=== PATIENT | male | born 1970 | race Caucasian/White ===

== ENCOUNTER → 2017-12-20 | Outpatient (CLI) | payer BC ==
[~2017-12-20] VITALS: Ht 167.6 cm; Wt 90.2 kg
[~2017-12-20] MED LIST: LRT5 PO
[2017-12-20 15:34] VITALS: BP 146/89; PULSE 83; Ht 167.6 cm; Wt 90.2 kg
== END | disposition home or self-care (01) ==
LOC: C.NEUR 15:06
PROVIDERS: ATTEND Internal Medicine Pulmonary Disease
DX: G47.00 Insomnia, unspecified (principal); G47.61 Periodic limb movement disorder; R53.83 Other fatigue; R06.83 Snoring; J34.2 Deviated nasal septum

== ENCOUNTER → 2018-01-02 | Outpatient (CLI) | payer OTHER ==
--- NOTE | 2018-01-03 06:01 | PAP/PSG TECHNICIAN REPORT ---
[facility] Capital Equipment Specialist Polysomnogram Report Study name: None Report date: 01/03/2018 Study date: 01/02/2018 Referring Physician: Jovanni Lindquist M.D. Name: ABRAHAM RAMÍREZ Interpreting Physician: Jovanni Lindquist M.D. Date of : 1970 Capital Equipment Specialist: Kirsten Peñaloza RPSGAVI. Sex: Male Age: 47 StudyType: PSG Weight: 198 lbs Height: 47 years, Height 5' 6" Neck Circum: 17 inches BMI: 31.95 Medications: Lorazepam 1 mg, Naproxen Sodium 550 mg, Omeprazole 20 mg, Tamsulosin 0 4 mg, Benadryl 75 mg, Tylenol PM Patient History 47 yr. old male here for a diagnostic sleep study in room #5. Patient complains of maintenance insomnia. Patient also complains of snoring and restlessness. ESS 01/04. Parameters Monitored NPSG: E1-M2, E2-M1, Fp1-M2, Fp2-M1, F3-M2, F4-M2, F4-M1, C3-M2, C4-M2, C4-M1, O1-M2, O2-M2, O2-M1, T3-M2, T4-M1, P3-M2, P4-M1, CHIN1, CHIN2, HR, EKG, Legs, PFLOW, SNOR, FLOW, CFLOW, Tidal Volume, THOR, ABDO, SpO2, PLTH, CPRESS, ETCO2 Wave, ETCO2, pH Sleep Architecture Sleep Stages Time at Lights Off 9:51:47 PM STAGES Time (min.) TST (%) Time at Lights On 5:41:17 AM Wake 111.5 -- Total Recording Time (TRT) 470.00 min. N1 44.0 12 Total Sleep Period (TSP) 410.0 min. N2 190.5 53 Total Sleep Time (TST) 358.0min. N3 31.0 9 Awake Time 111.5 min. REM 92.5 26 Wake after Sleep Onset 52.0 min. Sleep Efficiency (SE) 76 % Sleep Onset Latency (GUNNER) 59.5 min. Number of Stage 1 Shifts None Awakenings 23 Stage Changes 89 Number of REM periods 8 REM 92.5 26 REM Latency 50.5 min. NREM 265.5 74 Body Position Analysis Supine Right Left Side Prone Vertical Total Sleep Time (min.) 84.5 105.4 226.8 332.16 0.0 0.0 Total Sleep Time (%) 7% 29% 63% 93 0% N/A% Total Sleep Time REM (min.) 4.0 33.0 55.5 None 0.0 0.0 Total Sleep Time NREM (min.) 21.8 72.4 171.3 None 0.0 0.0 Intermittent Wake (min.) 58.6 16.7 36.2 None 0.0 0.0 Total Sleep Period (%) 7% None None None None None Arousals Myoclonus (PLM) * Events Count Index Events Count Index Spontaneous 10 2 Events Awake (PLMW) 40 21.5 Respiratory 3 0.5 Events Asleep w/ Arousal (PLMA) 4 0.7 PLM 4 1 Events Asleep w/o Arousal (PLMS) 26 4.4 Snoring 8 1 Total Asleep 30 5.0 Total 25 4 Total 70 9 Respiratory Analysis * CA OA MA CH H RERA Total Count 0 0 0 0 41 0 41 Index 0.0 0.0 0.0 0 6.9 0 6.9 Mean Duration 0.0 0.0 0.0 0.00 28.5 0.0 28.5 Longest Duration 0.0 0.0 0.0 0.00 0.0 0.0 51.2 Respiratory Event Summary Total Supine ~Supine Right Left Prone REM NREM Apneas Count 0 0 0 0 0 N/A 0 0 Index 0.0 0 0 0.0 0.0 N/A 0 0 Hypopneas (4% Desat) Count 41 21 20 7 13 N/A 12 29 Index 6.9 48.8 4 4.0 3.4 N/A 7.8 6.6 Apneas & All Hypopneas Count 41 21 20 7 13 N/A 12 29 Index 6.9 49 4 4 3 N/A 7.8 6.6 Respiratory Events (Nylon Winder+All Hyp+RERA) Count 41 21 20 7 13 N/A 12 29 Index 6.9 49 4 4.0 3.4 N/A 7.8 6.6 Respiratory Related Arousal Count 3 21 0 0 0 N/A 0 3 Index 0.5 7 0 0 0 N/A 0 1 Snoring Analysis Supine Right Left Prone REM NREM Total Snore duration 24.7 min Snores count 49 83 834 N/A 142 824 966 Snore mean duration 1.5 Sec Snores index 114 47 221 N/A 92.1 186.2 161.9 TST with snoring (%) 6.9% Desaturation Event Summary: Minimum %SpO2 Event Count Mean/Min/Max Duration(sec.) Desaturation Index % Time In Bed > 90 64 34.5 / 7.3 / 59.5 8.4 99.2 86 - 90 0 N/A 0.0 0.7 81 - 85 1 4.3 / 4.3 / 4.3 232.3 0.1 76 - 80 0 N/A 0.0 0.0 71 - 75 0 N/A 0.0 0.0 66 - 70 0 N/A 0.0 0.0 61 - 65 0 N/A 0.0 0.0 56 - 60 0 N/A 0.0 0.0 51 - 55 0 N/A 0.0 0.0 < 50 0 N/A 0.0 0.0 Total REM NREM Awake <50% 0.0 min. 0.0 min. 0.0 min. 0.0 min. 51 - 60% 0.0 min. 0.0 min. 0.0 min. 0.0 min. 61 - 70% 0.0 min. 0.0 min. 0.0 min. 0.0 min. 71 - 80% 0.0 min. 0.0 min. 0.0 min. 0.0 min. 81 - 90% 3.6 min. 0.7 min. 2.1 min. 0.8 min. 91 - 100% 459.7 min. 91.8 min. 263.0 min. 104.9 min. Average 94 95 94 94 Minimum SpO2 81 90 87 81 Desaturation Event Index 8.3 8.4 7.7 11.3 # Desat. Events below 89% 2 N/A 1 1 Time(%) with Saturation below 89% 0.1 0.0 0.0 0.1 Time(min.) with Saturation below 89% 0.4 0.0 0.1 0.3 Time (mins) REM (mins) NREM (mins) % of TST SpO2 Below 90% 9 N/A N9 0.2 SpO2 Below 88% 1 0 0 0 Heart Rate Analysis Min (bpm) Max (bpm) Average (bpm) Awake 30 127 70 NREM 47 96 64 REM 46 87 65 Overall 46 96 64 Supplemental O2 Values Minimum O2 level: None Value Start Time End Time Capital Equipment Specialist Comments Mr. Ramírez slept in the right, left, and supine positions. No cardiac arrhythmia. PLMs noted. No bruxism noted. Snoring was noted and scored as a 4 on a scale of 0 through 5. (0=no snoring, 5=snoring loud enough to be heard through a closed door or down the gayle way) Mr. Ramírez awoke to use the restroom once during the night. Mr. Ramírez stated, that was a normal night. The final report will be interpreted and signed by a sleep physician. The completed physician report will then be placed in the patient medical record. Therapy (cm H2O) 0 TIB (min.) 469.5 TST (min.) 358.0 Sleep Onset (min.) 59.5 REM Onset From Sleep (min.) 50.5 Sleep Efficiency % 76 Wakefulness (%) 24 Wakefulness (min.) 111.5 NREM 1 (%) 12 NREM 1 (min.) 44.0 NREM 2 (%) 53 NREM 2 (min.) 190.5 NREM 3 (%) 9 NREM 3 (min.) 31.0 REM (%) 26 REM (min.) 92.5 # Arousals 25 Arousal Index 4 # Snore 966 Snore Index 161.9 AHI 6.9 AHI Supine 49 AHI Non-Supine 4 NREM AHI 6.6 REM AHI 7.8 RDI 6.9 # Obstructive Apnea 0 # Central Apnea 0 # Mixed Apnea 0 # Hypopneas 41 RERAs 0 Total Respiratory Events 41 Time Below SpO2 89% (min.) 0.1 Mean NREM SpO2 (%) 94 Mean REM SpO2 (%) 95 Mean Sleep SpO2 (%) 94 Min NREM SpO2 (%) 87 Min REM SpO2 (%) 90 Position Supine (min.) 84.5 Position Non-supine (min.) 332.2 LM Index Sleep 5.0 LM Index NREM 2.5 LM Index REM 12.3 Mean Heart Rate (bpm) 64 Min Heart Rate (bpm) 46
--- NOTE | 2018-01-03 15:01 | POLYSOMNOGRAPH REPORT ---
CLINICAL DATA: A 47-year-old male with BMI of 32, referred by myself and Dr. Astorga with insomnia, restless legs and snoring at night. SLEEP ARCHITECTURE: Total sleep period was 410 minutes. Total sleep time was 358 minutes divided between 265.5 minutes of non-REM sleep and 92.5 minutes of REM sleep. Sleep onset latency was 59.5 minutes. REM latency was 50.5 minutes. Sleep efficiency was 76%. Wake after sleep onset was 52 minutes. Sleep consisted of stage N1 12%, stage N2 53%, stage N3 9% and REM 26%. AROUSAL DATA: Twenty four arousals were recorded for an index of 4 per hour. Ten were spontaneous. PERIODIC LIMB MOVEMENT DATA: Thirty limb movements during sleep were noted for an index of 5 per hour with arousal index of 0.7 per hour. RESPIRATORY DATA: Very mild sleep apnea was documented. The AHI was 6.9. There were 41 hypopneic episodes with a mean duration of 28.5 seconds. OXIMETRY DATA: Transient hypoxemia was seen. Oxygen regan was 87%. Mean saturation was 94%. Time below 88% was 1 minute. ECHOCARDIOGRAM: Heart rates ranged from 47-96 beats per minute. No arrhythmias were noted. CYTOPATHOLOGY TECHNOLOGIST'S COMMENTS: The patient slept in the right, left, and supine positions. Snoring was severe rated 4 on a scale of 1-5. IMPRESSION: 1. Mild sleep apnea/hypopnea with an apnea/hypopnea index of 6.9. 2. Delayed sleep onset consistent with insomnia. 3. No evidence of periodic limb movement disorder. RECOMMENDATIONS: The patient may benefit from weight loss, use of an oral appliance, or use of CPAP. Clinical correlation is needed. [facility]ITAL[facility]
--- NOTE | 2018-01-06 08:53 | POLYSOMNOGRAPH REPORT ---
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 Allen for evaluation of snoring and possible sleep apnea. The patient does have some issues with his weight and is trying to diet. He has been having some loud snoring, which has been bothering his . He does awake once per night to go to the bathroom. He has not had apneic episodes that he is aware of and his has not recorded apneic episodes. He goes to bed between 10:00 p.m. and 11:00 p.m. He falls asleep within minutes. He wakes up between 6:00 a.m. and 7:00 a.m. He usually feels rested at that time. He has no symptoms of PLMD or RLS. He has no symptoms of narcolepsy or parasomnia. He sleeps in bed on 1-2 pillows. SOCIAL HISTORY: He does not drink excessive amounts of caffeine. FAMILY HISTORY: There is a family history of loud snoring. There is a family history of cardiovascular disease. His father had a coronary artery bypass graft done several years ago. MEDICATIONS: He does not take any regular medications. REVIEW OF SYSTEMS: Rest of his review of systems is as noted in the questionnaire which is reviewed by me and scanned into the medical record. OBJECTIVE: VITAL SIGNS: As noted above. GENERAL: Alert and oriented x3. Records from his PCP have been reviewed. 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 His medical driver would like to have him evaluated for obstructive sleep apnea. He is going to be moving from this area on January 09. PLAN: The patient will be scheduled for an in-lab study. I will contact him with results of his sleep study prior to his leaving this area.
== END | disposition home or self-care (01) ==
LOC: C.NEUR 20:00
PROVIDERS: ATTEND Internal Medicine Pulmonary Disease
DX: G47.30 Sleep apnea, unspecified (principal); G47.21 Circadian rhythm sleep disorder, delayed sleep phase type

== ENCOUNTER → 2018-01-07 | Outpatient (CLI) | payer OTHER ==
[~2018-01-07] VITALS: Ht 167.6 cm; Wt 89.9 kg
[2018-01-07 13:58] VITALS: BP 157/91; PULSE 71; Ht 167.6 cm; Wt 89.9 kg
== END | disposition home or self-care (01) ==
LOC: C.NEUR 12:08
PROVIDERS: ATTEND Internal Medicine Pulmonary Disease
DX: G47.00 Insomnia, unspecified (principal); R53.83 Other fatigue; G47.30 Sleep apnea, unspecified; Z88.5 Allergy status to narcotic agent

== ENCOUNTER → 2018-02-21 | Outpatient (CLI) | payer OTHER ==
[~2018-02-21] VITALS: Ht 167.6 cm; Wt 89.9 kg
[2018-02-21 14:08] VITALS: BP 139/90; PULSE 109; Ht 167.6 cm; Wt 89.9 kg
== END | disposition home or self-care (01) ==
LOC: C.NEUR 13:35
PROVIDERS: ATTEND Internal Medicine Pulmonary Disease
DX: G47.00 Insomnia, unspecified (principal); G47.30 Sleep apnea, unspecified; R53.83 Other fatigue

== ENCOUNTER 2020-01-25 08:35 | Inpatient (IN) ==
--- NOTE | 2019-12-31 13:54 | PAT Medication Instructions ---
Medication Instructions Date of Service December 31, 2019 Home Medications doxepin 10 mg capsule 20 mg PO QPM PRN lorazepam 1 mg tablet 1 mg PO QPM PRN naproxen sodium 550 mg tablet 550 mg PO HS omeprazole 20 mg tablet,delayed release 20 mg PO HS multivitamin,[id number]-qvra-[id number] 1 tab PO QAM DO NOT take the morning of surgery multivitamin,nh-brxy-vedcrrkz 1 tab PO QAM Take evening before surgery doxepin 10 mg capsule 20 mg PO QPM PRN (if needed) lorazepam 1 mg tablet 1 mg PO QPM PRN (if needed) naproxen sodium 550 mg tablet 550 mg PO HS omeprazole 20 mg tablet,delayed release 20 mg PO HS NOTHING TO EAT OR DRINK AFTER MIDNIGHT Other Notes If you have any questions please call us at [phone] or [phone] or [phone] or [phone]
--- NOTE | 2020-01-01 08:27 | Anesthesiology Consultation ---
Date of Service January 01, 2020 Assessment & Plan (1) Encounter for pre-operative examination: Chart Review Chart Review: Acceptable Risk for Surgery and Patient seen in Pre Admission Testing Teaching & Discussion Instructed NPO after midnight before surgery, except medications with 15 cc of water. Medication instructions provided according to the PAT guidelines. History Surgery Operation Date: 01/25/20 09:20 Proposed Procedures p Right Total Shoulder Arthroplasty - Justin Joaquin, Height/Weight Height: 5 ft 6 in Weight: 82.2 kg Allergies Allergy/AdvReac Type Severity Reaction Status Date / Time morphine Allergy Mild HIVES Verified 12/25/19 11:39 Medications Home Medications Medication Instructions Recorded Confirmed Last Taken doxepin 10 mg capsule 20 mg PO QPM PRN cap 08/22/19 12/25/19 Unknown lorazepam 1 mg tablet 1 mg PO QPM PRN tab 08/22/19 12/25/19 Unknown naproxen sodium 550 mg tablet 550 mg PO HS 08/22/19 12/25/19 Unknown omeprazole 20 mg tablet,delayed 20 mg PO HS 08/22/19 12/25/19 Unknown release multivitamin,yq-bdxe-eauzkucz 1 tab PO QAM 12/14/19 12/25/19 Unknown Past Medical History Medical History (Updated 01/01/20 @ 08:28 by Yovanny Trujillo) GERD (gastroesophageal reflux disease) Nephrolithiasis X MULTIPLE-NO SURGERY Subarachnoid hemorrhage HX 2007, SPONTANEOUS, S/P COIL AT [facility] [place] Exercise / Class Metabolic Activity 1 > 8 Run/Swim/Ski/Tennis Past Family History Family History (Updated 12/25/19 @ 11:46 by Lisa Kim RN) Grandfather (Maternal) Family hx of colon cancer Past Surgical History Surgical History (Updated 01/01/20 @ 08:20 by Yovanny Trujillo) History of colonoscopy History of esophagogastroduodenoscopy (EGD) History of herniorrhaphy History of laminectomy AND FUSION, L5-S1 History of tooth extraction WISDOM TEETH Subarachnoid hemorrhage 2007-RANDOM BLEED-COIL PLACED AT [facility] [place]-NO MORE F/U-NO ISSUES SINCE Past Anesthesia History No Hx of Anesthesia Complications and No Family Hx of Anesthesia Complications History of PONV No Hx of PONV and No Hx of Motion Sickness Social History Smoking Status: Never smoker Do You Dip or Chew Tobacco: No Hx Alcohol Use: Yes Alcohol type: beer alcohol intake frequency: a few times a week Hx Substance Use: No Review of Systems Pt denies any recent chest pain, shortness of breath, palpitations, cough, fever or URI. Physical Exam Vital Signs BP: 125/82 P: 77bpm SPO2: 99% RA T: 97.7 F R: 16 ENMT Mouth: + dental restorations (2 crowns) Thyromental Distance: < 3.5 Finger Breadths (3) Mallampati Class: I Neck normal visual inspection; neck extension not limited Respiratory normal respiratory effort Auscultation: lungs clear to auscultation bilaterally Cardiovascular Rate/Rhythm: regular rate and regular rhythm Heart Sounds: no murmur Testing Laboratory Results 01/01/20 08:18 01/01/20 08:18 PT 9.8 Seconds (9.0-12.0) 01/01/20 08:18 INR 1.0 (0.9-1.1) 01/01/20 08:18 APTT 23.4 Seconds (21.0-31.0) 01/01/20 08:18 Blood Type O Positive 01/01/20 08:18 Antibody Screen NEGATIVE 01/01/20 08:18 Electrocardiogram Date: 01/01/20 Findings: + NSR @ (77bpm) No change from 2006 EKG. Chest X-Ray Date: 01/01/20 Findings: + NAD
--- NOTE | 2020-01-01 08:45 | XRay Report ---
XR chest Pre-admission PA/Lat CLINICAL HISTORY: 49 years-old Male presenting with preoperative assessment. TECHNIQUE: PA and lateral views of the chest were obtained. COMPARISON: None. FINDINGS: Cardiomediastinal silhouette normal. Lungs and pleural spaces clear. Osseous structures normal. Upper abdomen normal. IMPRESSION: 1. No acute cardiopulmonary disease. ACT 112: Negative or not required by law. Electronically signed by: Yehuda Faye M.D. 01/01/2020 8:44 AM
[2020-01-01 10:16] LABS: Basophils # (auto) 0.01 K/uL (0-0.2); Basophils % (auto) 0.2 %; Eosinophils # (auto) 0.23 K/uL (0-0.5); Eosinophils % (auto) 4.4 %; Hematocrit (blood only) 46.5 % (42-52); Immature Granulocytes # (auto) 0.01 K/uL (0.00-0.02); Immature Granulocytes % (auto) 0.2 %; Lymphocytes # (auto) 1.38 K/uL (1.2-3.4); Lymphocytes % (auto) 26.7 %; Mean Corpuscular Hemoglobin 33.6 pg (25-34); Mean Corpuscular Hgb Conc 34.4 g/dL (32-36); Mean Corpuscular Volume 97.7 fL (80-100); Mean Platelet Volume 12.3 fL (7.4-10.4); Monocytes # (auto) 0.34 K/uL (0.11-0.59); Monocytes % (auto) 6.6 %; Neutrophils % (auto) 61.9 %; Platelet Count 229 K/uL (130-400); RDW Coefficient of Variation 13.1 % (11.5-14.5); RDW Standard Deviation 46.6 fL (36.4-46.3); Red Blood Count 4.76 M/uL (4.7-6.1); White Blood Count 5.17 K/uL (4.8-10.8)
[2020-01-01 10:28] LABS: Partial Thromboplastin Ratio 0.9; Partial Thromboplastin Time 23.4 Seconds (21.0-31.0); Prothrombin Time 9.8 Seconds (9.0-12.0)
[2020-01-01 10:33] LABS: BUN Creatinine Ratio 19.9 (10-20); Calcium 9.3 mg/dl (8.5-10.1); Creatinine Clr Calc Pharmacy 84.7 ml/min; Est GFR (African American) 95.5; Est GFR (Non-African American) 82.4; Potassium 4.3 mmol/L (3.5-5.1)
--- NOTE | 2020-01-01 21:58 | Electrocardiogram Report ---
Test Reason : Blood Pressure : / mmHG Vent. Rate : 077 BPM Atrial Rate : 077 BPM P-R Int : 150 ms QRS Dur : 098 ms QT Int : 394 ms P-R-T Axes : 073 087 055 degrees QTc Int : 445 ms Normal sinus rhythm Normal ECG When compared with ECG of 08-MAY-2007 11:33, No significant change was found Confirmed by Herb Mccabe ([id number]) on 01/01/2020 9:58:05 PM Referred By: Justin Joaquin Confirmed By:Herb Mccabe
--- NOTE | 2020-01-22 13:31 | History & Physical Report ---
Date of Service January 22, 2020 Assessment & Plan (1) Osteoarthritis of right shoulder: We will proceed with a right total shoulder arthroplasty. Postoperatively he will be placed in a sling and kept overnight in the hospital for postoperative medical management. He will do outpatient physical therapy upon discharge. Driss is a low risk for a right shoulder procedure. 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 He has been having a long history of increasing right shoulder pain. Is been getting much worse over the last 9 months. He has trouble chopping firewood. He has trouble sleeping at night. X-rays and clinical examination have been diagnostic for advanced osteoarthritis of the right shoulder. After failing conservative treatment, he has elected to proceed with a right total shoulder arthroplasty. Allergies Allergy/AdvReac Type Severity Reaction Status Date / Time morphine Allergy Mild HIVES Verified 12/25/19 11:39 Home Medications Home Medications Medication Instructions Recorded Confirmed Type doxepin 10 mg capsule 20 mg PO QPM PRN cap 08/22/19 12/25/19 History lorazepam 1 mg tablet 1 mg PO QPM PRN tab 08/22/19 12/25/19 History naproxen sodium 550 mg tablet 550 mg PO HS 08/22/19 12/25/19 History omeprazole 20 mg tablet,delayed 20 mg PO HS 08/22/19 12/25/19 History release multivitamin,dh-qixe-aazaybhb 1 tab PO QAM 12/14/19 12/25/19 History Past Med/Surg History Medical History GERD (gastroesophageal reflux disease) Nephrolithiasis X MULTIPLE-NO SURGERY Subarachnoid hemorrhage HX 2007, SPONTANEOUS, S/P COIL AT [facility] [place] Surgical History History of colonoscopy History of esophagogastroduodenoscopy (EGD) History of herniorrhaphy History of laminectomy AND FUSION, L5-S1 History of tooth extraction WISDOM TEETH Subarachnoid hemorrhage 2007-RANDOM BLEED-COIL PLACED AT [facility] [place]-NO MORE F/U-NO ISSUES SINCE Family History Grandfather (Maternal) Family hx of colon cancer Social History Preferred Language: Kiswahili Communication Ability: Effective Shirt Hemmer Required: No Beliefs That Will Affect Care: None marital status: Current Living Situation: Spouse and Family current occupational status: employed Other Information That Helps Us Care for You: No Feels Safe at Home: Yes Safety Concerns: Feels Safe At This Time Smoking Status: Never smoker Do You Dip or Chew Tobacco: No ; Second Hand Exposure: Yes (MOTHER SMOKED) ; Hx Alcohol Use: Yes Alcohol type: beer Hx Substance Use: No Review of Systems Review of Systems: All systems reviewed & are unremarkable except as noted in HPI & below Physical Exam Constitutional: WD/WN, vitals as above Eyes: PERRL, conjunctivae normal, anicteric sclerae ENMT: external ear and nose normal, oropharynx normal Neck: trachea midline, no thyromegaly Respiratory: normal respiratory effort Cardiovascular: RRR, no murmur, no edema Gastrointestinal (Abdomen): normal bowel sounds, soft, nontender, no hepatosplenomegaly Musculoskeletal: Physical examination of the right shoulder reveals decreased range of motion and crepitis throughout. There is good strength with full can testing and external rotation. There is tenderness palpation along the anterior glenohumeral joint line. The right upper extremity is neurovascularly intact. Psychiatric: A+Ox3, euthymic affect Results & Data Diagnostic Findings Radiographs of the right shoulder show osteoarthritis of the glenohumeral joint. There is joint space narrowing, osteophyte formation, and [id number] articulation. PG Care Time/CCT Total # of Minutes Spent Total Time Spent with Patient: Total time spent is greater than 50% in coordination of care (as documented) at patient's floor/unit and/or counseling patient: Coding Level of Care Code 14700 Initial Inpt Care Lvl 2 Diagnoses Osteoarthritis of right shoulder M19.011
[~2020-01-25 08:35] MED LIST changes: +ACETAMINOPHEN 500 MG TAB PO SCH; +BUPIVACAINE 0.5 % 5 MG/1 ML PF 10ML VIAL ONE; +CEFAZOLIN 2000MG 2,000 MG/15 ML SYR IV SCH; +FAMOTIDINE 20 MG TAB PO SCH; +GABAPENTIN 900 MG DOSE PO SCH; +LR 15ML/HR IV SCH; +LR 60ML/HR IV SCH; -LRT5 PO; +TRANEXAMIC ACID 1,000 MG **IV Intra-op IV SCH; +TRANEXAMIC ACID 1,000 MG **IV Pre-op IV SCH; +dexAMETHasone 4 MG TAB PO SCH
[2020-01-25] MEDS ORDERED: ATROPINE SULFATE 0.1 MG/ML 10ML SYR IV PRN (10:34)
[2020-01-25] MEDS ORDERED: ePHEDrine sulfate 50 MG/ML AMP IV PRN (10:34)
[2020-01-25] MEDS ORDERED: fentaNYL citrate 100 MCG/2 ML VIAL IV PRN (10:34)
[2020-01-25] MEDS ORDERED: ONDANSETRON INJ 2 MG/ML 2 ML VIAL IV PRN ×2 (10:34→14:35)
--- NOTE | 2020-01-25 10:38 | History & Physical Bridge Note ---
Date of Service January 25, 2020 History & Physical Bridge Note I have examined the patient, reviewed the History & Physical and in the interval since the performance of the History & Physical I have noted the following changes of clinical significance: no changes noted
[2020-01-25] MEDS ORDERED: ORTHO JOINT ANESTHETIC ONE (11:02)
[2020-01-25] MEDS ORDERED: MIDAZOLAM HCL 1 MG/ML 2ML VIAL ONE ×2 (11:23→11:58)
[2020-01-25] MEDS ORDERED: PROPOFOL IV EMULSION 10 MG/ML 20 ML VIAL IV ONE (11:55)
[2020-01-25] MEDS ORDERED: ONDANSETRON INJ 2 MG/ML 2 ML VIAL ONE (11:56)
[2020-01-25] MEDS ORDERED: LIDOCAINE HCL 2% 2 ML VIAL/AMP(20MG/ML) INFIL ONE (11:56)
[2020-01-25] MEDS ORDERED: DEXAMETHASONE SOD INJ 4 MG/ML VIAL ONE (11:56)
[2020-01-25] MEDS ORDERED: ROCURONIUM BROMIDE 10 MG/ML 5 ML VIAL ONE (11:56)
[2020-01-25] MEDS ORDERED: fentaNYL citrate 100 MCG/2 ML VIAL ONE ×2 (11:58→12:09)
[2020-01-25] MEDS: ROPIVACAINE 0.5% HCL/PF 150 MG, BUPIVACAINE 0.5% MPF 30 ML, EPINEPHrine 30MG/30ML (OR U... INSTIL SCH ×2 (12:12→12:53)
--- NOTE | 2020-01-25 13:00 | Operative Report ---
PG Post Operative Report Pre & Post Diagnosis Operation Date: 01/25/20 11:10 Pre-Op Diagnosis: Right Shoulder Osteoarthritis with tendinopathy of the long head of the biceps tendon Post-Op Diagnosis: Right Shoulder Osteoarthritis with tendinopathy of the long head of the biceps tendon I identified the patient and participated in the time-out.: Yes Procedure Operation Date: 01/25/20 11:10 Actual Procedures p Right Total Shoulder Arthroplasty with open biceps tenodesis as a separate procedure (modifier 59)--Cemented(Right) - Justin Joaquin DO Surgeon Justin Joaquin DO Perianesthesia Rn Justin Campa PAC Estimated Blood Loss 200 Findings Consistent with Post-Op Diagnosis Specimens Right humeral head Complications none Disposition Disposition: Recovery Room Indications Driss is a pleasant 49-year-old male who presented my office with chronic increasing right shoulder pain. X-rays and clinical examination were diagnostic for advanced osteoarthritis of the right shoulder. After failing conservative treatment, he elected to proceed with a right total shoulder arthroplasty. Description of Procedure A CPT code modifier 59: The long head of the biceps tendon was enlarged and inflamed consistent with tendinopathy. A tenodesis was opted. This was a separate and distinct portion of the procedure. For these reasons, a CPT code modifier 59 will be added to this case. Implants used: I used a Biomet Comprehensive total shoulder arthroplasty system with a size 12 press fit mini humeral stem, a size 50 x 21 eccentric humeral head, and a medium size glenoid with a Regenerex peg. The glenoid was cemented in place with Palacos G cement. Driss arrived at [facility] for the above procedure. He was seen in the preoperative holding area and the operative extremity was identified and signed. He was given a preoperative antibiotic, TXA, and an interscalene nerve block. He was taken back to the operating room, laid on table in supine position, and put under general anesthesia. He was then put into the beachchair position. The shoulder was then prepped and draped in sterile fashion. A timeout was done and the patient and the operative extremity was properly identified. A deltopectoral approach was used. Dissection was taken down through the fascia and the deltoid was retracted laterally and the conjoined tendon was retracted medially. The anterior shoulder was exposed. The biceps groove was opened up and the biceps tendon was examined extensively. The biceps tendon demonstrated enlargement and inflammatory changes consistent with longstanding inflammation in the context of osteoarthritis. The long head of the biceps tendon was then tenodesed to the upper border of the pectoralis major. This was a separate and distinct portion of the procedure. The subscapularis was then released off the lesser tuberosity with a centimeter of cuff tissue remaining. The inferior capsule was released and the humeral head was dislocated. The rotator cuff was inspected and intact. A canal finding reamer was sent down the center of the humeral canal. Sequential reaming up to a size 12 reamer was done. Offset reamer a proximal humeral resection guide was placed. The proximal humerus was resected at 135 of inclination and 30 of retroversion. Inferior osteophytes were then removed and the glenoid was exposed. Time was spent doing an appropriate labral release. The glenoid measured to be a size medium. A 3.2 mm Steinmann pin was placed in the central hole of the glenoid vault pin guide. The glenoid was then reamed with a propeller reamer. The central post cutter was then used to prepare for the central boss. The cannulated peripheral peg drill guide was then placed and 3 peg holes were drilled. The final size medium glenoid was then cemented in place with Palacos G cement. Surrounding soft tissues were then injected with 100 cc of an orthopedic pain control cocktail. Once cement had dried the proximal humerus was once again exposed. Sequential broaching of the humerus up to a size 12 broach was done. Off that broach a size 50 x 21 eccentric humeral head was trialed. The shoulder was then reduced, brought through a full range of motion, and felt to be stable. The shoulder was then dislocated and the broach was removed. The final size 12 mini humeral stem implant was then impacted into place. A size 50 x 21 eccentric humeral head was then impacted onto the humeral stem. The shoulder was then reduced and once again brought through a full range of motion and felt to be stable. The subscapularis was then tenodesed back to the lesser tuberosity with transosseous FiberWire sutures and side to side sutures with the arm in 45 of external rotation. 2 sutures were placed in the lateral rotator interval. A dilute betadyne lavage was then done for 3 minutes. The joint was then irrigated with normal saline solution. Hemostasis was obtained. The interval was closed with 2-0 Vicryl suture. The skin was closed with 2-0 Vicryl and sil. A soft dressing was placed and the arm was rested in a regular arm sling. He was then extubated and transferred to a hospital bed. He was taken to the postanesthesia care unit in stable condition. He tolerated the procedure well. Justin Campa PA-C, was present for the entire procedure. He was critical for patient positioning, prepping, draping, retraction exposure, wound closure and application of sterile dressing. I attest to the content of the Intraoperative Record and any orders documented therein. Any exceptions are noted below.
[2020-01-25] MEDS ORDERED: GLYCOPYRROLATE 0.2 MG/ML VIAL ONE (13:04)
[2020-01-25] MEDS ORDERED: NEOSTIGMINE METHYLSULFATE 5 MG/5 ML SYR ONE (13:04)
--- NOTE | 2020-01-25 13:43 | Anesthesiology Progress Note ---
Date of Service January 25, 2020 Anesthesia Post Procedure Vital Signs Vital Signs: Temp Pulse Pulse Resp BP Pulse Ox 01/25/20 13:40 81 18 111/81 93 01/25/20 13:30 83 16 121/76 100 01/25/20 13:21 97.0 F L 86 15 123/85 100 01/25/20 11:20 72 18 119/77 98 01/25/20 11:10 86 18 126/72 97 01/25/20 11:00 74 18 103/73 98 01/25/20 08:58 97.5 F L 86 20 138/84 99 Pain Intensity Right Shoulder: Pain Intensity: 3 Transfer of Care Handoff Completed per policy Notes Mental Status: alert / awake / arousable and participated in evaluation Patient Amnestic to Procedure: Yes Nausea / Vomiting: adequately controlled Pain: adequately controlled Airway Patency, RR, SpO2: stable & adequate BP & HR: stable & adequate Hydration State: stable & adequate Anesthetic Complications: no major complications apparent and Pt Satisfied with anesthetic care
--- NOTE | 2020-01-25 13:46 | XRay Report ---
XR shoulder RT min 2V routine CLINICAL HISTORY: Post shoulder surgery COMPARISON STUDY: None. FINDINGS: 2 views of the right shoulder demonstrate a right total shoulder arthroplasty. The hardware appears intact. No fracture or dislocation. Skin sil are in place. IMPRESSION: Status post right total shoulder arthroplasty. No evidence for hardware complication. ACT 112: Negative or not required by law. Electronically signed by: Thiago Lewis M.D. 01/25/2020 1:45 PM
[2020-01-25] MEDS ORDERED: OXYCODONE HCL IR 5 MG TAB (IMMEDIATE RELEASE) PO PRN (14:35)
[2020-01-25] MEDS ORDERED: DiphenhydrAMINE HCL 50 MG/ML VIAL IV PRN (14:35)
[2020-01-25] MEDS ORDERED: HYDROmorphone INJ 0.5 MG/0.5 ML SYR IV PRN (14:35)
[2020-01-25] MEDS ORDERED: bisacodyL 10 MG SUPP PR PRN (14:35)
[2020-01-25] MEDS ORDERED: MAGNESIUM HYDROXIDE SUSP 30 ML UDC PO PRN (14:35)
[2020-01-25] MEDS ORDERED: NALOXONE HCL 0.4 MG/1 ML VIAL/CARP IV PRN (14:35)
[2020-01-25] MEDS ORDERED: DOXEPIN HCL 10 MG CAPSULE PO PRN (14:35)
[2020-01-25] MEDS ORDERED: SODIUM CHLORIDE 0.9% 1000ML 1,000 ML IV SCH (14:35)
[2020-01-25] MEDS ORDERED: METOCLOPRAMIDE HCL INJ 5 MG/ML 2 ML VIAL IV PRN (14:35)
[2020-01-25] MEDS ORDERED: LORazepam 1 MG TAB PO PRN (14:52)
[2020-01-25] MEDS: KETOROLAC 30 MG/ML VIAL IV SCH ×2 (14:55→21:12)
[2020-01-25] MEDS: ACETAMINOPHEN 500 MG TAB PO SCH ×2 (14:56→21:24)
[2020-01-25] MEDS: CEFAZOLIN 2000MG 2,000 MG/15 ML SYR IV SCH (19:18)
[2020-01-25] MEDS ORDERED: SENNA 8.6 MG TAB PO SCH (21:00)
[2020-01-25] MEDS ORDERED: PANTOprazole 40 MG TAB PO SCH (21:00)
[2020-01-25] MEDS: DOCUSATE SODIUM 100 MG CAP PO SCH (21:11)
[2020-01-26] MEDS: KETOROLAC 30 MG/ML VIAL IV SCH ×2 (03:15→08:55)
[2020-01-26] MEDS: CEFAZOLIN 2000MG 2,000 MG/15 ML SYR IV SCH (03:15)
[2020-01-26] MEDS: ACETAMINOPHEN 500 MG TAB PO SCH (05:18)
[2020-01-26 05:50] LABS: Basophils # (auto) 0.01 K/uL (0-0.2); Basophils % (auto) 0.1 %; Hematocrit (blood only) 39.9 % (42-52); Hemoglobin 13.6 g/dL (14.0-18.0); Immature Granulocytes # (auto) 0.02 K/uL (0.00-0.02); Immature Granulocytes % (auto) 0.2 %; Lymphocytes # (auto) 0.57 K/uL (1.2-3.4); Lymphocytes % (auto) 4.5 %; Mean Corpuscular Hemoglobin 33.3 pg (25-34); Mean Corpuscular Hgb Conc 34.1 g/dL (32-36); Mean Corpuscular Volume 97.8 fL (80-100); Mean Platelet Volume 12.1 fL (7.4-10.4); Monocytes # (auto) 0.68 K/uL (0.11-0.59); Monocytes % (auto) 5.3 %; Neutrophils # (auto) 11.47 K/uL (1.4-6.5); Neutrophils % (auto) 89.9 %; Platelet Count 222 K/uL (130-400); RDW Coefficient of Variation 13.4 % (11.5-14.5); RDW Standard Deviation 48.2 fL (36.4-46.3); Red Blood Count 4.08 M/uL (4.7-6.1); White Blood Count 12.75 K/uL (4.8-10.8)
[2020-01-26 06:19] LABS: BUN Creatinine Ratio 13.8 (10-20); Creatinine Clr Calc Pharmacy 81.9 ml/min; Est GFR (African American) 91.2; Est GFR (Non-African American) 78.7; Potassium 4.6 mmol/L (3.5-5.1)
--- NOTE | 2020-01-26 06:49 | Orthopedic Progress Note ---
Date of Service January 26, 2020 Assessment & Plan (1) History of right shoulder replacement: Overall he is doing very well. Is not having much pain in the right shoulder. He is happy with his progress to this point. He will be seen by physical therapy today for ambulation and range of motion exercises. He can be discharged home later today. He will follow-up with orthopedics in 2 weeks. Present on Admission?: Yes Subjective Driss was seen and examined at bedside this morning. Overall he is doing very well. He is not having any pain in the right shoulder. He is happy with his progress to this point. He has no complaints. Physical Exam Musculoskeletal: On physical examination of the right shoulder, the dressing is clean and dry. His radial, median, and ulnar nerves are checked intact his wrist. His axillary nerve was not checked yet. Results & Data ([facility]) Vital Signs (Past 12 Hours) Vital Signs Temp Pulse Resp BP Pulse Ox 01/26/20 03:12 36.8 C 81 16 116/71 94 01/25/20 23:05 36.4 C L 87 16 132/76 95 01/25/20 19:36 36.7 C 71 17 126/75 96 01/25/20 19:19 36.4 C L Laboratory Results H & H 01/01/20 01/26/20 Range/Units 08:18 05:35 Hgb 16.0 13.6 L (14.0-18.0) g/dL Hct 46.5 39.9 L (42-52) % Coagulation 01/01/20 Range/Units 08:18 INR 1.0 (0.9-1.1) Diagnostic Findings Postoperative x-rays of the right shoulder show the prosthesis to be in anatomic alignment without any evidence of fracture, dislocation, or loosening. PG Care Time/CCT Total # of Minutes Spent Total Time Spent with Patient: Total time spent is greater than 50% in coordination of care (as documented) at patient's floor/unit and/or counseling patient: Coding Level of Care Code None Diagnoses History of right shoulder replacement Z96.611
--- NOTE | 2020-01-26 06:51 | Discharge Summary ---
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 He has been having a long history of increasing right shoulder pain. Is been getting much worse over the last 9 months. He has trouble chopping firewood. He has trouble sleeping at night. X-rays and clinical examination have been diagnostic for advanced osteoarthritis of the right shoulder. After failing conservative treatment, he has elected to proceed with a right total shoulder arthroplasty. Principal Diagnosis Right total shoulder arthroplasty Discharge Data Allergies Allergy/AdvReac Type Severity Reaction Status Date / Time morphine Allergy Mild HIVES Verified 01/25/20 08:53 Consultations 01/25/20 14:35 Consult Case Management - Discharge Planning Routine Procedures Performed Operation Date: 01/25/20 11:10 Actual Procedures p Right Total Shoulder Arthroplasty--Cemented(Right) - Justin Joaquin DO Ordered Studies 01/25/20 05:00 US - OR guided needle placemen Routine Hospital Course (1) History of right shoulder replacement: On January 25, 2020 Driss arrived at [facility] and underwent a right shoulder replacement without complication. He had a general anesthetic and a right interscalene nerve block. Postoperatively he was placed in a sling and transferred to the general orthopedic floors. His hospital course was uneventful. On postop day #1 his H&H was stable and his pain was well controlled. He was able to participate well with physical therapy doing ambulation and range of motion exercises. He was then discharged home. He will follow-up with orthopedics in 2 weeks. Total Time Total Time Spent Total Time Spent (In Minutes): 20 Discharge Plan Discharge Items Patient Disposition: Home - Home Health Services Reason For Visit: RIGHT SHOULDER DEGENERATIVE JOINT DISEASE Discharge Diagnosis: Right shoulder replacement Activity: As commented below Non-emergency contact: Surgeon Call non-emergency contact if: your wound has increased redness and your wound has increased drainage Follow-up/Referrals: Brooke Astorga DO [Primary Care Provider] - Diet: Regular Addtl Attending Provider Instructions: Activity and Therapy Recommendations: * If you are using [facility] then therapy will be provided at your home until they feel you have accomplished all of your goals. * If you are using [facility] then Physical Therapy will be provided until they feel you are ready to start Outpatient Physical Therapy. * If you are not using home therapy then Outpatient Physical Therapy should start about 3-5 days from your day of surgery. Therapy will last about 8-12 weeks * Wear your sling for 3 weeks, unless otherwise instructed. You may remove your sling to shower and to dress, but otherwise, you should be in your sling at all times, including while sleeping * The shoulder replacement is very stable and you can use your hand while in the sling * You were shown a series of exercises in the hospital. Do these exercises daily including the exercises you were shown in physical therapy. Medications: * Narcotic You will likely be sent home from the hospital with a prescription for the narcotic pain medication that worked best throughout your stay. * Other medications may be prescribed for specific circumstances. If you have any questions, please call the office at . * Resume previous home medications unless otherwise instructed Dressing Care: Leave the plastic dressing in place for 5 days. After 5 days you may remove the plastic dressing. If the incision is not draining then you may leave the sil open to air. If there is a little bit of drainage or if the sil are getting stuck on your clothing then cover the incision with a dry dressing. The sil will be removed at your 2 week follow-up appointment. Showering: You may shower with the plastic dressing in place. Let the shower spray hit the other shoulder. You can pat the plastic dry. If the dressing becomes wet underneath the plastic then simply remove the dressing. Keep the incision dry until you are 5 days out from the day of surgery. At that time you can shower with the sil exposed. Let the soapy shower water run over the sil and pat them dry. Do not scrub or soak the incision. Things To Watch For: * Drainage from the incision site that occurs more than one week after your surgery. * Increased redness at the incision site. * Fever above 102 degrees Fahrenheit. * Unusual chest pain or shortness of breath. * Call [facility] at with any of the above problems Follow-Up Visit: Follow-up with Dr. Joaquin 2-3 weeks after your day of surgery. An appointment was probably scheduled when you signed-up for surgery in the office. If you have any questions call Office Instructions: More detailed instructions as well as Frequently Asked Questions were provided in a folder by our office when you signed-up for surgery. Please review these instructions when you get home. If you have any further questions or concerns, please feel free to call the office at [phone] Pending Studies at Discharge: No Stand-Alone Forms: My [facility], Smoking Cessation Medications and DC Order Prescriptions: New oxycodone 5 mg Tablet 5 mg PO Q4H PRN (Reason: pain) Qty: 30 RF: 0 Continued omeprazole 20 mg tablet,delayed release (DR/EC) 20 mg PO HS RF: 0 doxepin 10 mg capsule 20 mg PO QPM PRN (Reason: Sleep) RF: 0 lorazepam 1 mg tablet 1 mg PO QPM PRN (Reason: Sleep) RF: 0 naproxen sodium 550 mg tablet 550 mg PO HS RF: 0 Complete Multivitamin Tablet 1 tab PO QAM RF: 0 Discharge Orders: Discharge Order (Routine); Ordered 01/26/20 Ordered By: Justin Joaquin Admission Data Admit Date/Time: 01/25/20 13:19 Attending Provider: Justin Joaquin Admit Provider: Justin Joaquin Primary Care Provider: Brooke Astorga Coding Level of Care Code D/C Day Management <30 mins Diagnoses History of right shoulder replacement Z96.611
[2020-01-26] MEDS ORDERED: dexAMETHasone 4 MG TAB PO SCH (08:00)
[2020-01-26] MEDS: DOCUSATE SODIUM 100 MG CAP PO SCH (08:54)
[2020-01-26] MEDS ORDERED: MULTIVITAMIN TAB PO SCH (09:00)
--- NOTE | 2020-01-26 09:21 | Anesthesiology Progress Note ---
Date of Service January 26, 2020 Anesthesia Post Procedure Vital Signs Vital Signs: Temp Pulse Pulse Pulse Resp BP Pulse Ox 01/26/20 08:28 36.5 C 75 81 82 18 120/74 94 01/26/20 07:36 36.5 C 82 18 120/74 94 01/26/20 03:12 36.8 C 81 16 116/71 94 01/25/20 23:05 36.4 C L 87 16 132/76 95 01/25/20 19:36 36.7 C 71 17 126/75 96 01/25/20 19:19 36.4 C L 01/25/20 17:21 36 C L 80 20 126/77 96 01/25/20 16:26 36.4 C L 93 H 17 118/71 95 01/25/20 15:39 36.3 C L 87 20 119/71 95 01/25/20 14:44 36.7 C 83 18 107/71 95 01/25/20 14:15 36.4 C L 82 16 110/73 93 01/25/20 14:05 36.5 C 75 19 98/59 L 98 01/25/20 13:55 60 20 95/51 L 96 01/25/20 13:40 81 18 111/81 93 01/25/20 13:30 83 16 121/76 100 01/25/20 13:21 36.1 C L 86 15 123/85 100 01/25/20 11:20 72 18 119/77 98 01/25/20 11:10 86 18 126/72 97 01/25/20 11:00 74 18 103/73 98 Pain Intensity Right Shoulder: Pain Intensity: 0 Notes Mental Status: alert / awake / arousable and participated in evaluation Nausea / Vomiting: adequately controlled Pain: adequately controlled Airway Patency, RR, SpO2: stable & adequate BP & HR: stable & adequate Hydration State: stable & adequate Anesthetic Complications: no major complications apparent and Pt Satisfied with anesthetic care
== END 2020-01-26 10:21 | disposition home health service (06) | DRG 483 ==
LOC: ASU 08:35 → 3E 08:35 → OBSVTOIN 13:19